=== PATIENT | male | born 1970 | race African-American/Black ===

== ENCOUNTER 2023-08-21 22:07 | Emergency (ER) | payer MEDICAID ==
[2023-08-22 09:22] VITALS: BP 128/71; PULSE 75; RESP 17; TEMP 98.1
== END 2023-08-22 09:23 | disposition home or self-care (01) ==
LOC: ER 22:07
DX: S42.302A Unspecified fracture of shaft of humerus, left arm, initial encounter for closed fracture (principal); E11.9 Type 2 diabetes mellitus without complications; X58.XXXA Exposure to other specified factors, initial encounter; Y93.89 Activity, other specified; Y92.89 Other specified places as the place of occurrence of the external cause; Y99.8 Other external cause status
CPT/HCPCS: 99281; Z7610